=== PATIENT | male | born 1955 | race Caucasian/White ===

== ENCOUNTER 2017-09-23 13:18 | Outpatient (CLI) | payer BC ==
--- NOTE | 2017-09-23 14:36 | Diagnostic Imaging Report ---
Indication: Cough Technique: 2 views of the chest Comparison: None Findings: Lungs and pleural spaces are clear. Heart size is normal. There is evidence of prior anterior lower cervical fusion. There is mild thoracic scoliotic deformity. There are mild degenerative changes of the thoracic spine Impression: No acute process
== END 2017-09-23 15:18 | disposition home or self-care (01) ==
LOC: RAD 13:18
DX: R05 Cough (principal); Z98.1 Arthrodesis status
CPT/HCPCS: 71046